=== PATIENT | male | born 1945 | race Caucasian/White ===

== ENCOUNTER 2016-09-17 12:56 | Inpatient (IN) | payer MEDICARE, OTHER ==
[~2016-09-17 12:56] MED LIST: ASPIRIN EC81 MG PO; CLINDAMYCIN HC300 MG PO; COREG 25MG TAB25 MG PO; GLYBURIDE-METF1 EAC1 PO; K-DUR TAB 10 M10 MEQ PO; LANTUS100 UNIT/1 SQ; LASIX40 MG PO; LIPITOR TAB 2020 MG PO; LISINOPRIL10 MG PO; NEXIUM40 MG PO; PLAVIX 75 MG TA75 MG PO; RANITIDINE HCL300 MG PO; SYNTHROID50 MCG PO; ULTRAM50 MG PO
[2016-09-17 14:59] LABS: RED BLOOD COUNT 4.2 M/UL (4.20-5.50); WHITE BLOOD COUNT 6.2 K/UL (4.5-11.0)
[2016-09-18] MEDS ORDERED: NEURONTIN 100100 MG PO (00:04)
[2016-09-18] MEDS ORDERED: PROTONIX 40 MG40 M1 PO (00:05)
[2016-09-18 06:42] LABS: HEMOGLOBIN 10.8 gm/dl (14.0-17.5); RED BLOOD COUNT 3.79 M/UL (4.20-5.50)
[2016-09-18 06:58] LABS: WHITE BLOOD COUNT 3.6 K/UL (4.5-11.0)
[2016-09-19 05:58] LABS: HEMOGLOBIN 10.5 gm/dl (14.0-17.5); RED BLOOD COUNT 3.69 M/UL (4.20-5.50); WHITE BLOOD COUNT 2.9 K/UL (4.5-11.0)
[2016-09-19 14:33] LABS: HEMOGLOBIN 10.5 gm/dl (14.0-17.5); RED BLOOD COUNT 3.71 M/UL (4.20-5.50); WHITE BLOOD COUNT 2.9 K/UL (4.5-11.0)
[2016-09-20 04:57] LABS: HEMOGLOBIN 10.4 gm/dl (14.0-17.5); RED BLOOD COUNT 3.67 M/UL (4.20-5.50); WHITE BLOOD COUNT 2.6 K/UL (4.5-11.0)
[2016-09-21 04:28] LABS: HEMOGLOBIN 10.3 gm/dl (14.0-17.5); RED BLOOD COUNT 3.64 M/UL (4.20-5.50); WHITE BLOOD COUNT 2.8 K/UL (4.5-11.0)
[2016-09-21] MEDS ORDERED: TAMIFLU6 MG/1 ML PO (15:51)
[2016-09-21] MEDS ORDERED: FOLBIC RF TABL1 EACH PO (15:54)
== END 2016-09-21 16:30 | disposition home or self-care (01) | DRG 558 ==
LOC: ER1 12:56 → MED SURG 4 16:40 → ZEROF 16:40 → MED SURG 4 23:06
PROVIDERS: Family Medicine; Internal Medicine; Internal Medicine Infectious Disease; Physician Assistant; ADMIT Internal Medicine
DX: M62.82 Rhabdomyolysis (principal); N17.9 Acute kidney failure, unspecified; I13.0 Hypertensive heart and chronic kidney disease with heart failure and stage 1 through stage 4 chronic kidney disease, or unspecified chronic kidney disease; I50.20 Unspecified systolic (congestive) heart failure; E87.2 Acidosis; D61.818 Other pancytopenia; N18.3 Chronic kidney disease, stage 3 (moderate); I25.5 Ischemic cardiomyopathy; I25.10 Atherosclerotic heart disease of native coronary artery without angina pectoris; I70.201 Unspecified atherosclerosis of native arteries of extremities, right leg; E11.649 Type 2 diabetes mellitus with hypoglycemia without coma; J09.X9 Influenza due to identified novel influenza A virus with other manifestations; I08.2 Rheumatic disorders of both aortic and tricuspid valves; E78.5 Hyperlipidemia, unspecified; K21.9 Gastro-esophageal reflux disease without esophagitis; E83.42 Hypomagnesemia; I45.81 Long QT syndrome; E03.9 Hypothyroidism, unspecified; E66.9 Obesity, unspecified; Z95.1 Presence of aortocoronary bypass graft; Z95.810 Presence of automatic (implantable) cardiac defibrillator; Z98.62 Peripheral vascular angioplasty status; Z68.24 Body mass index [BMI] 24.0-24.9, adult; Z79.84 Long term (current) use of oral hypoglycemic drugs; Z79.02 Long term (current) use of antithrombotics/antiplatelets; Z79.82 Long term (current) use of aspirin; Z79.1 Long term (current) use of non-steroidal anti-inflammatories (NSAID); Z79.4 Long term (current) use of insulin; Z79.899 Other long term (current) drug therapy; Z88.3 Allergy status to other anti-infective agents; Z88.5 Allergy status to narcotic agent; Z89.431 Acquired absence of right foot; Z98.42 Cataract extraction status, left eye; Z98.41 Cataract extraction status, right eye; Z96.1 Presence of intraocular lens; Z98.890 Other specified postprocedural states; Z82.49 Family history of ischemic heart disease and other diseases of the circulatory system; Z83.3 Family history of diabetes mellitus; Z80.0 Family history of malignant neoplasm of digestive organs
CPT/HCPCS: 36415; 36600; 71010; 80048; 80053; 81001; 82550; 82553; 82607; 82728; 82746; 82803; 82962; 83036; 83540; 83550; 83605; 83735; 83874; 83880; 84439; 84443; 84484; 85025; 85027; 86140; 87040; 93005; 99285; G0378; J7030; J7040